=== PATIENT | female | born 1995 | race Caucasian/White ===

== ENCOUNTER 2018-06-18 15:45 | Outpatient (CLI) | payer OTHER | END 2018-06-18 15:47 | LOC: LAB 15:45 | PROVIDERS: ATTEND Obstetrics & Gynecology | DX: O20.0 Threatened abortion (principal) | CPT/HCPCS: 36415; 84144; 84702 ==

== ENCOUNTER 2018-06-20 15:47 | Outpatient (CLI) | payer OTHER | END 2018-06-20 15:50 | LOC: LAB 15:47 | PROVIDERS: ATTEND Obstetrics & Gynecology | DX: Z32.01 Encounter for pregnancy test, result positive (principal) | CPT/HCPCS: 36415; 84702 ==